=== PATIENT | male | born 1955 | race Caucasian/White ===

== ENCOUNTER 2021-12-06 14:24 | Outpatient (REF) | payer MEDICARE, SELFPAY ==
[2021-12-06 14:46] LABS: COVID-19 Test Negative (Negative); IDNOW Serial# 55D5AD1C
== END 2021-12-06 14:25 | disposition home or self-care (01) ==
LOC: HO.LNP 14:24
PROVIDERS: Visit Provider Internal Medicine
DX: Z20.822 Contact with and (suspected) exposure to COVID-19 (principal)
CPT/HCPCS: 87635

== ENCOUNTER 2023-06-11 10:09 | Outpatient (AMB) | payer MEDICARE, SELFPAY ==
[2023-06-11 10:19] VITALS: BP 171/84; PULSE 74; BMI 26.1
--- NOTE | 2023-06-11 10:19 | A.OFFVIS_ITS ---
Intake Vital Signs 06/11/23 10:19 Height 5 ft 11 in Weight 187 lb BMI 26.1 BP 171/84 H Blood Pressure Location Rt brachial Position Sitting Pulse 74 Intake Visit Reasons: RIH Intake Note: Patient referred for [facility]. Present for at least 2 yrs. C/o on and off pain. Train Attendant Required: No Accompanied by: Self / Same As Patient Allergies acetaminophen [Percocet] Allergy (Unknown, Verified 06/11/23 10:21) vomiting oxycodone [OXYCODONE] Adverse Reaction (Intermediate, Unverified 06/11/23 10:21) VOMITING NARCOTICS Allergy (Intermediate, Uncoded 06/11/23 10:21) VOMITING HPI HPI Comments History of Present Illness Details Patient presents with at least 3 year history of symptomatic enlarging right inguinal hernia as well as an incidental finding of an umbilical hernia. Patient has had a left inguinal hernia repair many years ago. This current right L hernia has increased in size to the point where he has to wear a truss. He has no other GI issues or complaints. He is tolerating a diet. He is occasionally constipated. Patient has had colonoscopy at least 3 times. On occasion, he has had to manually reduced the right inguinal hernia when has become symptomatic. 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 Left groin negative. Old well-healed left inguinal hernia scar. Genitalia within normal limits. Very large reducible right inguinal hernia. Abdomen soft. Approximately 2 cm reducible umbilical hernia. Assessment & Plan Assessment & Plan (1) Inguinal hernia: Code(s): K40.90 - Unilateral inguinal hernia, without obstruction or gangrene, not specified as recurrent (2) Umbilical hernia: Code(s): K42.9 - Umbilical hernia without obstruction or gangrene Plan I discussed surgical options with the patient which include open repair of both inguinal and umbilical hernia at the same setting. Risks, benefits, alternatives of the procedure were reviewed and included but not limited to bleeding, infection, recurrence, numbness, pain, scarring and the patient would like to proceed but is not sure of the date. All questions were answered. Arrangements will be made on a day which is convenient for him. The meantime, I discussed with him symptoms regarding incarceration/strangulation and should he develop any of these, he has been instructed the either call the office or go to the ER immediately. Coding Level of Care Code New Pt Level 5 (62712) Diagnoses Inguinal hernia K40.90 Umbilical hernia K42.9
== END 2023-06-11 11:31 | disposition home or self-care (01) ==
PROVIDERS: PCP Internal Medicine; Referring Provider Internal Medicine; Visit Provider Surgery
DX: K40.90 Unilateral inguinal hernia, without obstruction or gangrene, not specified as recurrent (principal); K42.9 Umbilical hernia without obstruction or gangrene
CPT/HCPCS: 99205

== ENCOUNTER → 2023-06-11 10:09 | Outpatient (BNVA) | payer MEDICARE, SELFPAY | PROVIDERS: PCP Internal Medicine; Referring Provider Internal Medicine; Visit Provider Surgery | DX: K40.90 Unilateral inguinal hernia, without obstruction or gangrene, not specified as recurrent (principal); K42.9 Umbilical hernia without obstruction or gangrene | CPT/HCPCS: 99202 ==

== ENCOUNTER 2023-07-11 08:25 | Day surgery (SDC) | payer MEDICARE, SELFPAY ==
[2023-07-08 16:50] VITALS: BMI 25.5
--- NOTE | 2023-07-10 09:31 | MHC.SHP ---
Pre-Procedural Eval Section A Date of Service: 07/10/23 The patient is an INPATIENT: No Changes since office visit: No Cold of Flu in the past 2 weeks, No New Medical Problems, No Changes in Medication and No Patient answered all questions The History & Physical has been completed within 30 days and I have reviewed it.: Yes Section B Chief Complaint: Unilateral inguinal hernia,Umbilical hernia withou Allergies: Allergies Allergy/AdvReac Type Severity Reaction Status Date / Time oxycodone [OXYCODONE] AdvReac Severe nausea, Verified 07/08/23 16:45 vomiting, diaphoresis NARCOTICS AdvReac Severe Nausea, Uncoded 07/08/23 16:45 vomiting, diaphoresis Plan I have reviewed the history and physical and performed a pertinent physical examination on my patient. No changes have occurred unless specified. Time Spent With Patient Time: Total time managing care of this patient today ____ minutes.
[2023-07-11] MEDS: Lactated Ringers 1,000 ML 100 ML IVCONT (08:47)
[2023-07-11 08:52] VITALS: BP 147/78; PULSE 59; RESP 18; TEMP 36.7; O2SAT 98
--- NOTE | 2023-07-11 09:30 | HO.ANESPROP2 ---
Documented by User: Tanesha Bob NP 07/10/23 08:57 HPI - Anesthesia Eval Consult details Narrative: 68yo M for Right OPEN Hernia Repair Inguinal with mesh, Hernia Repair Umbilical PMFSH Active Problems Active Problems: All Active Problems (Updated 07/08/23 @ 16:49 by Nany Bass, SHELDON) Inguinal hernia (Acute) Umbilical hernia (Acute) Past Medical History Medical History Contact dermatitis Full dentures Slow to wake up after anesthesia Surgical History Surgical History History of esophagogastroduodenoscopy (EGD) History of right hip replacement (~08/24/21) Hx of colonoscopy Hx of cystoscopy Hx of eye surgery Hx of left inguinal hernia repair Social History Social History Are you a primary child care director to a significant other at home: No Do you presently have visiting nurse or other home services: No Alcohol intake: never Patient Tobacco Use Status: Former Tobacco user Quit Date: quit years ago Tobacco use type: Cigarette Use of substances other than those prescribed or required for medical reasons: No Have you been hit, kicked, punched, or otherwise hurt by someone within the past year? If so, by whom?: No Are you DNR?: No Advance Directives: No Advance Directives Information Provided: Yes Advance Directives on File: No Recently lost weight without trying: No Nutrition Risks: No Nutritional Risk Meds Allergies Allergy/AdvReac Type Severity Reaction Status Date / Time oxycodone [OXYCODONE] AdvReac Severe nausea, Verified 07/11/23 08:53 vomiting, diaphoresis NARCOTICS AdvReac Severe Nausea, Uncoded 07/11/23 08:53 vomiting, diaphoresis Home Medications Medication Instructions Recorded Confirmed Last Taken Type betamethasone, augmented 0.05 % topical BID contact dermatitis 07/08/23 07/08/23 Unknown History topical ointment Exam Exam Date and Time: July 10, 2023 0857 Height,Weight and Vital Signs: Height 5 ft 11 in Weight 83.007 kg Assessment and Plan Assessment Anesthesia Assessment: Chart Reviewed Documented by User: Komal Castle DO 07/11/23 10:09 [facility] Past Medical History Medical History Contact dermatitis Full dentures Slow to wake up after anesthesia Family History Family history of problems with anesthesia: No Surgical History Surgical History History of esophagogastroduodenoscopy (EGD) History of right hip replacement (~08/24/21) Hx of colonoscopy Hx of cystoscopy Hx of eye surgery Hx of left inguinal hernia repair History of Problems with Anesthesia: Yes (slow to wake up) Social History Social History Are you a primary child care director to a significant other at home: No Do you presently have visiting nurse or other home services: No Alcohol intake: never Patient Tobacco Use Status: Former Tobacco user Quit Date: quit years ago Tobacco use type: Cigarette Use of substances other than those prescribed or required for medical reasons: No Have you been hit, kicked, punched, or otherwise hurt by someone within the past year? If so, by whom?: No Are you DNR?: No Advance Directives: No Advance Directives Information Provided: Yes Advance Directives on File: No Recently lost weight without trying: No Nutrition Risks: No Nutritional Risk Meds Allergies Allergy/AdvReac Type Severity Reaction Status Date / Time oxycodone [OXYCODONE] AdvReac Severe nausea, Verified 07/11/23 08:53 vomiting, diaphoresis NARCOTICS AdvReac Severe Nausea, Uncoded 07/11/23 08:53 vomiting, diaphoresis Home Medications Medication Instructions Recorded Confirmed Last Taken Type betamethasone, augmented 0.05 % topical BID contact dermatitis 07/08/23 07/08/23 Unknown History topical ointment Exam Exam Date and Time: July 11, 2023 0930 Height,Weight and Vital Signs: Vital Signs Temperature 98.0 F 07/11/23 08:52 Pulse Rate 59 07/11/23 08:52 Respiratory Rate 18 07/11/23 08:52 Blood Pressure 147/78 H 07/11/23 08:52 Pulse Oximetry 98 07/11/23 08:52 Oxygen Delivery Method Room Air 07/11/23 08:52 Temperature 98.0 F 07/11/23 08:52 Pulse Rate 59 07/11/23 08:52 Respiratory Rate 18 07/11/23 08:52 Blood Pressure 147/78 H 07/11/23 08:52 Pulse Oximetry 98 07/11/23 08:52 Oxygen Delivery Method Room Air 07/11/23 08:52 Height 5 ft 11 in Weight 83.007 kg Airway Mallampati Class: II TM Dist: >3cm Neck ROM: Full Denture: Upper and Lower Heart: S1S2 Lungs: CTAB Assessment and Plan Assessment Anesthesia Assessment: Anesthesia Plan Discussed and Chart Reviewed Final Anesthetic Review Family History of Problems with Anesthesia: No History of Problems with Anesthesia: Yes (slow to wake up) NPO: Yes ASA Class: I Final Preanesthetic Review: No Changes in Pt Med Stat, Meds/Allgs Chart Reviewed, Consent Obtained/Reviewed and Anes Risks/Benef Reviewed Patient Risk: Low Procedure Risk: Low Anesthetic Plan Anesthetic Plan: MAC: and Agree w/ Assess. and Plan Disposition: Standard PACU
[2023-07-11 10:48] VITALS: BP 113/57; PULSE 56; RESP 16; TEMP 36.3; O2SAT 97
[2023-07-11 10:53] VITALS: BP 97/57; PULSE 60; RESP 18; O2SAT 96
[2023-07-11 11:08] VITALS: BP 120/59; PULSE 55; RESP 16; O2SAT 95
--- NOTE | 2023-07-11 11:16 | W.PM.OPN ---
Operative Note Operative Note Date of Service: 07/11/23 Narrative: Preoperative diagnosis: [] 1. Right inguinal hernia 2. Incarcerated umbilical hernia Postop diagnosis: [] Same Procedure [] open repair right inguinal hernia with Bard mesh, repair of incarcerated umbilical hernia with Bard mesh Surgeon: [] [employer] Kil[employer] Furniture Saw Tender: [] SISSY Aguayo Type of Anesthesia: [] MAC Indication for surgery: [] Large indirect right inguinal hernia. No direct hernia demonstrated. Incarcerated umbilical hernia measuring approximately 3 cm with omental contents. Findings: [] Patient brought to the operating room, placed on operative table in the supine position, and after adequate level of MAC anesthesia was induced, the patient's abdomen and right groin were prepped and draped in usual sterile fashion. Commencing with the right inguinal hernia, a regional ilioinguinal block was initially undertaken using 1% lidocaine/0.5% Marcaine and a small right para- inguinal incision was made and carried down through skin, subcutaneous tissue, Maylin's fascia. External oblique fibers were opened in the direction with care to isolate and preserve the ilioinguinal nerve throughout the procedure. Exploration of the inguinal floor demonstrated no direct hernia. The spermatic cord was identified and retracted from the field. Exploration of the cord demonstrated A very large indirect hernia sac, which was from the cord. Sac was opened and contents were reduced. Sac had a suture ligature placed at its base of 2-0 silk and redundant sac amputated. Stump was infiltrated with 0.5% Marcaine/1% lidocaine and reduced. A Bard plug was placed in this indirect defect and sutured inferiorly to the inguinal ligament and superiorly to the transversalis fascia using interrupted 0 Ethibond suture. A completion the procedure, graft covered the entire inguinal floor. Internal ring admitted 1 finger tip. Wounds irrigated, and secured hemostasis. The wound Was closed in the following manner; external oblique fascia was closed using running 2-0 Vicryl suture. Maylin's fascia was reapproximated using interrupted 3-0 Vicryl sutures. Interrupted inverted deep dermal 3-0 Vicryl sutures followed by running subcuticular 4-0 Vicryl suture placed. Steri-Strips and sterile dressings were applied. Ipsilateral testicle was intrascrotal at completion of the procedure. Next umbilical hernia was approached and infiltrated with 1% lidocaine/0.5% Marcaine and using a small infraumbilical curvilinear incision and carried down through skin, subcutaneous tissue, were incarcerated hernia sac was identified and dissected from the posterior aspect of the umbilicus. Sac was opened were incarcerated omental contents were from the sac. Both were amputated using Bovie and specimen sent to pathology. Fascia was circumferentially cleared. A Bard mesh was placed in this defect and the superficial layer of the mesh was circumferentially sutured to the surrounding fascia using interrupted 0 Ethibond suture. A completion procedure, mesh was in good position with no tension and no gaps. Wounds irrigated, secured hemostasis, and Was closed in the following manner; posterior aspect of the umbilicus was tacked to the wound floor using up to 3-0 Vicryl sutures. Skin wound was closed using interrupted inverted dermal 3-0 Vicryl sutures followed by Steri-Strips and sterile dressings. Sponge, needle, and instrument counts were reported to be correct. Patient tolerated the procedure well and emerged anesthesia stable condition. EBL minimal
[2023-07-11 11:18] VITALS: BP 116/80; PULSE 54; RESP 14; O2SAT 96
[2023-07-11 11:33] VITALS: BP 125/69; PULSE 56; RESP 14; O2SAT 96
== END 2023-07-11 12:10 | disposition home or self-care (01) ==
PROVIDERS: PCP Internal Medicine; Visit Provider Surgery
PROC: (CPT 49505; principal; 2023-07-11 10:00)
PROC: (CPT 49505; 2023-07-11 10:00)
DX: K40.90 Unilateral inguinal hernia, without obstruction or gangrene, not specified as recurrent (principal); K42.0 Umbilical hernia with obstruction, without gangrene; Z88.5 Allergy status to narcotic agent; Z87.891 Personal history of nicotine dependence; Z98.890 Other specified postprocedural states
CPT/HCPCS: 49505; 49592; 88302; C1781; J0131; J0690; J1885; J2371; J2405; J3010

== ENCOUNTER → 2023-07-11 08:25 | Outpatient (BNV) | payer MEDICARE, SELFPAY | PROVIDERS: PCP Internal Medicine; Visit Provider Surgery | DX: K40.20 Bilateral inguinal hernia, without obstruction or gangrene, not specified as recurrent (principal); K42.0 Umbilical hernia with obstruction, without gangrene | CPT/HCPCS: 49505; 49594 ==

== ENCOUNTER 2023-07-21 09:13 | Outpatient (AMB) | payer MEDICARE, SELFPAY ==
--- NOTE | 2023-07-21 09:23 | MHC.OFFVIS ---
Intake Vital Signs 07/21/23 09:24 Weight 186 lb BP 140/72 H Blood Pressure Location Rt brachial Position Sitting Pulse 74 Intake Visit Reasons: S/P RIH & umbilical hernia repairs w/mesh Intake Note: Patient here s/p RIH and Umbilical hernia repairs. Reports incisions healing well. Denies pain or bleeding. Only too rx pain meds for a day. Shoe Worker Required: No Accompanied by: Self / Same As Patient Allergies oxycodone [OXYCODONE] Adverse Reaction (Severe, Verified 07/21/23 09:25) nausea, vomiting, diaphoresis NARCOTICS Adverse Reaction (Severe, Uncoded 07/21/23 09:25) Nausea, vomiting, diaphoresis HPI HPI Comments History of Present Illness Details Patient presents for follow-up status post umbilical and right inguinal hernia repair. He is doing well. He has tolerating his diet. Having normal bowel habits. He is slowly but steadily increasing his activity level. He has minimal incisional discomfort. [facility] Medical History Contact dermatitis Full dentures Slow to wake up after anesthesia Surgical History History of esophagogastroduodenoscopy (EGD) History of right hip replacement (~08/24/21) Hx of colonoscopy Hx of cystoscopy Hx of eye surgery Hx of left inguinal hernia repair Social History Are you a primary hearing care practitioner to a significant other at home: No Do you presently have visiting nurse or other home services: No Alcohol intake: never Patient Tobacco Use Status: Former Tobacco user Quit Date: quit years ago Tobacco use type: Cigarette Physical Exam Vital Signs: Last Vital Signs Pulse 74 07/21/23 09:24 BP 140/72 H 07/21/23 09:24 GI Other: Abdomen soft, benign. Both wounds clean dry and intact. Assessment & Plan Assessment & Plan (1) Inguinal hernia: Code(s): K40.90 - Unilateral inguinal hernia, without obstruction or gangrene, not specified as recurrent (2) Umbilical hernia: Code(s): K42.9 - Umbilical hernia without obstruction or gangrene Plan Patient has been given very specific local instructions as well as light duty when he returns to work. He does not need a note for work. All questions were answered. Patient will see me p.r.n.. Coding Level of Care Code Global (44969) Diagnoses Inguinal hernia K40.90 Umbilical hernia K42.9
[2023-07-21 09:24] VITALS: BP 140/72; PULSE 74
--- NOTE | 2023-07-21 09:39 | A.OFFVIS_ITS ---
Intake Vital Signs 07/21/23 09:24 Weight 186 lb BP 140/72 H Blood Pressure Location Rt brachial Position Sitting Pulse 74 Intake Visit Reasons: S/P RIH & umbilical hernia repairs w/mesh Allergies oxycodone [OXYCODONE] Adverse Reaction (Severe, Verified 07/21/23 09:25) nausea, vomiting, diaphoresis NARCOTICS Adverse Reaction (Severe, Uncoded 07/21/23 09:25) Nausea, vomiting, diaphoresis Medication List - Last Reconciled 07/21/23 by Michael Jaeger MD betamethasone, augmented 0.05 % topical BID PFSH Medical History Contact dermatitis Full dentures Slow to wake up after anesthesia Surgical History History of esophagogastroduodenoscopy (EGD) History of right hip replacement (~08/24/21) Hx of colonoscopy Hx of cystoscopy Hx of eye surgery Hx of left inguinal hernia repair Social History Are you a primary care management associate to a significant other at home: No Do you presently have visiting nurse or other home services: No Alcohol intake: never Patient Tobacco Use Status: Former Tobacco user Quit Date: quit years ago Tobacco use type: Cigarette Physical Exam Vital Signs: Last Vital Signs Pulse 74 07/21/23 09:24 BP 140/72 H 07/21/23 09:24 Assessment & Plan Assessment & Plan (1) Inguinal hernia: Code(s): K40.90 - Unilateral inguinal hernia, without obstruction or gangrene, not specified as recurrent (2) Umbilical hernia: Code(s): K42.9 - Umbilical hernia without obstruction or gangrene Coding Diagnoses Inguinal hernia K40.90 Umbilical hernia K42.9
== END 2023-07-21 09:34 | disposition home or self-care (01) ==
PROVIDERS: PCP Internal Medicine; Visit Provider Surgery
DX: K40.90 Unilateral inguinal hernia, without obstruction or gangrene, not specified as recurrent (principal); K42.9 Umbilical hernia without obstruction or gangrene
CPT/HCPCS: 99024

== ENCOUNTER → 2023-07-21 09:13 | Outpatient (BNVA) | payer MEDICARE, SELFPAY | PROVIDERS: PCP Internal Medicine; Visit Provider Surgery ==

== ENCOUNTER 2025-05-02 07:53 | Outpatient (AMB) | payer MEDICARE, SELFPAY ==
--- NOTE | 2025-05-02 08:00 | A.OFFPC_ITS ---
Vital Signs 05/02/25 08:04 Height 5 ft 11 in Weight 91.172 kg BMI 28.0 BP 138/82 Respiration 16 Pulse 84 Pulse Source Pulse Oximeter Temp 98.8 F Temp Source Temporal Artery Scan Pulse Oximetry (%) 95 Oxygen Delivery Method Room Air Intake Visit Reasons: Routine - see comments Audiovisual Production Specialist Required: No Accompanied by: Self / Same As Patient Allergies oxycodone [OXYCODONE] Adverse Reaction (Severe, Verified 05/02/25 08:00) nausea, vomiting, diaphoresis NARCOTICS Adverse Reaction (Severe, Uncoded 05/02/25 08:00) Nausea, vomiting, diaphoresis HPI HPI Comments History of Present Illness Details 69-year-old male with history of BPH, pe ptic ulcer disease, aortic stenosis, osteoarthritis, unspecified dermatitis, hernia repairs, vertigo presents to the office for management of chronic conditions and to establish care. Aortic aortic stenosis- no recent echo. No sob or lightheadedness Vertigo-episodic and well-controlled with meclizine Unspecified dermatitis of the hands-following with Dermatology. Has required steroid injections in the past but is now well-controlled and uses betamethasone as needed Concerns: None Health maintenance: Last colonoscopy-07/2014, overdue Due for PSA ROS: General: No fevers, malaise, unintentional weight loss HEENT: No blurred vision, diplopia. No sore throat, nasal congestion, rhinorrhea, sinus pain, ear pain Cardiovascular: No chest pain, palpitations, or leg edema Respiratory: No shortness of breath, wheezing, cough GI: No abdominal pain, nausea, vomiting, diarrhea, constipation, melena, hematochezia : No dysuria, hematuria, increased urinary frequency, decreased urinary output MSK: No myalgia, back pain Neuro: No headaches, weakness, paresthesias. see hpi Skin: No rashes or lesions EXAM: Constitutional - Awake and Alert, No apparent distress Eyes - PERRLA, EOMI Cardiovascular - S1S2, RRR, No edema. IV/ systolic murmur Respiratory - Normal lung expansion, Normal respiratory effort, No respiratory distress, CTA bilaterally Extremities - no calf tenderness bilaterally, no swelling Skin - Warm/Dry Neurological - Alert & oriented x3 Psychological - Appropriate affect [facility] Medical History (Updated 05/02/25 @ 08:18 by SISSY Meehan) Aortic stenosis Vertigo Slow to wake up after anesthesia Full dentures Contact dermatitis Surgical History (Updated 04/29/25 @ 15:35 by Usha Carvajal) Hx of eye surgery Hx of left inguinal hernia repair History of esophagogastroduodenoscopy (EGD) Hx of colonoscopy (~02/09/14) Hx of cystoscopy History of right hip replacement (~08/24/21) Social History Are you a primary healthcare account manager to a significant other at home: No Do you presently have visiting nurse or other home services: No Alcohol intake: never Patient Tobacco Use Status: Former Tobacco user Tobacco use type: Cigarette Questionnaire PHQ-9 Over the last 2 weeks, how often have you been bothered by any of the following problems? 1. Little interest or pleasure in doing things: not at all 2. Feeling down, depressed, or hopeless: not at all 3. Trouble falling or staying asleep, or sleeping too much: not at all 4. Feeling tired or having little energy: not at all 5. Poor appetite or overeating: not at all 6. Feeling bad about yourself - or that you are a failure or have let yourself or your family down: not at all 7. Trouble concentrating on things, such as reading the newspaper or watching television: not at all 8. Moving or speaking so slowly that other people could have noticed. Or the opposite - being so fidgety or restless that you have been moving around a lot more than usual: not at all 9. Thoughts that you would be better off or of hurting yourself in some way: not at all Total score: 0 Source: Developed by Drs. Quentin Fish, Lorri Peralta, Fantasma Avalos and colleagues, with an educational jameson from [employer]. Thrive Questionnaire Date Thrive assessed: 05/02/25 I am a: Patient What is your living situation today?: I have a steady place to live Within the past 12 months, did the food you bought not last and you didn't have the money to get more?: Never true Within the past 12 months, did you worry whether your food would run out before you got money to buy more?: Never true Do you have trouble paying for medicines?: No Do you have trouble getting transportation to medical appointments?: No Do you have trouble paying your heating and electricity bill?: No Do you have trouble taking care of your child, family member or friend?: No Do you have trouble with day-to-day activities such as bathing, preparing meals, shopping, managing finances, etc.?: No Are you currently unemployed and looking for a job?: No Are you interested in more education?: No Please select the resources that you would like help with: None THRIVE Score: 0 VARUN-7 AMB Questionnaire VARUN-7 Date VARUN - 7 assessed: 05/02/25 Feeling nervous, anxious, or on edge: 0 = Not at all Not being able to stop or control worryin = Not at all Worrying too much about different things: 0 = Not at all Trouble relaxin = Not at all Being so restless that it is hard to sit still: 0 = Not at all Becoming easily annoyed or irritable: 0 = Not at all Feeling afraid as if something awful might happen: 0 = Not at all Total VARUN-7 score (0-4 normal; 5-9 mild; 10-14 moderate; 15-21 severe): 0 Source: Developed by Drs. Quentin Fish, Lorri Peralta, Fantasma Avalos and colleagues, with an educational jameson from [employer]. Physical exam (Primary Care) Vital Signs: Last Vital Signs Temp 98.8 F 05/02/25 08:04 Pulse 84 05/02/25 08:04 Resp 16 05/02/25 08:04 BP 138/82 05/02/25 08:04 Pulse Ox 95 05/02/25 08:04 Oxygen Delivery Method Room Air 05/02/25 08:04 BMI result Body Mass Index 28.0 Tobacco/Smoking Status: Tobacco use Status Patient Tobacco Use Status Former Tobacco user 05/02/25 08:02 Tobacco use type Cigarette 05/02/25 08:02 Coding Level of Care Code New Pt Level 4 (60629) Complex EM visit Add On G2211 Diagnoses Aortic stenosis I35.0 Dermatitis, unspecified L30.9 Vertigo R42 Assessment & Plan Assessment & Plan (1) Aortic stenosis: Code(s): I35.0 - Nonrheumatic aortic (valve) stenosis Category: Medical Plan: Echo ordered. Asymptomatic (2) Dermatitis, unspecified: Code(s): L30.9 - Dermatitis, unspecified Category: Medical Plan: Continue following with derm. Steroid creams prn (3) Vertigo: Code(s): R42 - Dizziness and giddiness Category: Medical Plan: Stable. Meclizine prn. Given instructions on wilfrido maneuver Plan Follow up for annual exam. Referred for colonoscopy. Labs to be completed. Echo ordered Orders: Orders Complete Blood Count Auto Diff Today R42 - Dizziness and giddiness, Z12.5 - Encounter for screening for malignant neoplasm of prostate, Z13.220 - Encounter for screening for lipoid disorders Lipid Panel Today R42 - Dizziness and giddiness, Z12.5 - Encounter for screening for malignant neoplasm of prostate, Z13.220 - Encounter for screening for lipoid disorders Liver Panel Today R42 - Dizziness and giddiness, Z12.5 - Encounter for screening for malignant neoplasm of prostate, Z13.220 - Encounter for screening for lipoid disorders CA echo transthoracic complete Today I35.0 - Nonrheumatic aortic (valve) stenosis Basic Metabolic Panel Today R42 - Dizziness and giddiness, Z12.5 - Encounter for screening for malignant neoplasm of prostate, Z13.220 - Encounter for screening for lipoid disorders Hemoglobin A1c Today R42 - Dizziness and giddiness, Z12.5 - Encounter for screening for malignant neoplasm of prostate, Z13.220 - Encounter for screening for lipoid disorders Prostate Specific Antigen Today R42 - Dizziness and giddiness, Z12.5 - Encounter for screening for malignant neoplasm of prostate, Z13.220 - Encounter for screening for lipoid disorders Referrals Gastroenterology Referral L30.9 - Dermatitis, unspecified
[2025-05-02 08:04] VITALS: BP 138/82; PULSE 84; RESP 16; TEMP 37.1; O2SAT 95; BMI 28.0
== END 2025-05-02 08:26 | disposition home or self-care (01) ==
LOC: HO.HMCHD 07:53
PROVIDERS: PCP Internal Medicine; Visit Provider Physician Assistant
DX: I35.0 Nonrheumatic aortic (valve) stenosis (principal); L30.9 Dermatitis, unspecified; R42 Dizziness and giddiness

== ENCOUNTER 2025-05-02 08:32 | Outpatient (REF) | payer MEDICARE, SELFPAY ==
[2025-05-02 09:54] LABS: MANUAL DIFF FLAG NO
[2025-05-02 09:57] LABS: Basophils Absolute Auto 0.1 X10*3/uL (0.0-0.2); Basophils Percent Auto 0.9 % (0-2); Eosinophils Absolute Auto 0.2 X10*3/uL (0.0-0.4); Eosinophils Percent Auto 1.7 % (0-4); Hematocrit 48.9 % (42.0-52.0); Hemoglobin 16.5 g/dl (14.0-18.0); Imm Gran Abs Auto 0.03 X10*3/uL (0.00-0.03); Imm Gran Pct Auto 0.3 % (0.0-0.4); Lymphocytes Absolute Auto 1.6 X10*3/uL (1.2-4.9); Lymphocytes Percent Auto 14.5 % (20-40); Mean Corpuscular HGB Conc 33.7 g/dl (31.0-36.0); Mean Corpuscular Hemoglobin 29.8 pg (27.0-33.0); Mean Corpuscular Volume 88.3 fL (80.0-98.0); Mean Platelet Volume 10.1 fL (9.4-12.4); Monocytes Absolute Auto 0.7 X10*3/uL (0.1-1.2); Monocytes Percent Auto 6.4 % (2-11); Neutrophils Absolute Auto 8.2 x10*3/uL (2.0-8.3); Neutrophils Percent Auto 76.2 % (45-73); Platelet Count 249 X10*3/uL (160-400); Red Blood Count 5.54 X10*6/uL (4.60-5.80); Red Cell Distribution Width 13.2 % (11.0-16.0); White Blood Count 10.8 X10*3/uL (4.8-10.8)
[2025-05-02 10:11] LABS: Estimated Average Glucose 111 mg/dL; Hemoglobin A1c % 5.5 % (<6.0)
[2025-05-02 10:18] LABS: Alanine Aminotransferase 22 U/L (0-40); Albumin Level 4.6 g/dL (3.5-5.0); Alkaline Phosphatase 61 U/L (39-117); Anion Gap 9 (12-20); Aspartate Amino Transferase 22 U/L (5-37); Bilirubin Direct 0.2 mg/dL (0.0-0.5); Bilirubin Total 0.7 mg/dL (0.0-1.0); Blood Urea Nitrogen 19 mg/dL (9-16); Calcium 9.5 mg/dL (8.4-10.2); Carbon Dioxide 30 mmol/L (22-29); Chloride 106 mmol/L (96-108); Cholesterol 197 mg/dL (<200); Estimated Glomerular Filt Rate > 60; Glucose Random 105 mg/dL (60-115); HDL Cholesterol 37 mg/dL (>40); LDL Cholesterol Calculated 127 mg/dL (<100); Potassium 4.2 mmol/L (3.3-5.1); Sodium 141 mmol/L (135-145); Total Protein 7.4 g/dL (6.5-8.0); Triglycerides 166 mg/dL (<150)
[2025-05-02 10:31] LABS: Prostate Specific Antigen 3.82 ng/mL (<0.05-4.0)
== END 2025-05-02 08:33 | disposition home or self-care (01) ==
LOC: HO.10HDL 08:32
PROVIDERS: Visit Provider Physician Assistant
DX: I35.0 Nonrheumatic aortic (valve) stenosis (principal); L30.9 Dermatitis, unspecified; R42 Dizziness and giddiness; Z12.5 Encounter for screening for malignant neoplasm of prostate; Z13.220 Encounter for screening for lipoid disorders; Z13.1 Encounter for screening for diabetes mellitus
CPT/HCPCS: 36415; 80048; 80061; 80076; 83036; 84153; 85025; 96127; 99202

== ENCOUNTER → 2025-06-08 12:55 | Outpatient (REF) | payer MEDICARE, SELFPAY ==
--- NOTE | 2025-06-08 12:58 | CA_ITS ---
Transthoracic Echocardiogram Patient (Last, First, Middle): Gavin Ramirez F Gender: Male Date of : 1955 Age: 70 Procedure Date: 06/08/2025 Procedure Type: Transthoracic Echocardiogram Location: OP Height: 180.34 cm Weight: 87.54 kg BSA: 2.08 m2 Heart Rate: bpm BP: 140 / 88 mmHg Tower Helper: TO Referring MD: Ernestine SHEEHAN Symptoms: I35.0 - Nonrheumatic aortic (valve) stenosis Study Quality: Fair ECG Rhythm: Sinus Conclusions: - The left ventricular systolic function is low normal. The calculated ejection fraction is 54% by biplane method. - There is moderate aortic valve stenosis. Findings Left Ventricle Normal left ventricular cavity size. The left ventricular systolic function is low normal. The calculated ejection fraction is 54% by biplane method. There is no evidence of regional wall motion abnormalities. Diastolic function is normal for age. There is mild septal asymmetric hypertrophy. Stroke volume index 29 mL/m2. Right Ventricle Normal right ventricular cavity size and systolic function. Atria Both atria are normal in size. Aortic Valve There is moderate calcification of the aortic valve. There is moderate aortic valve stenosis. There is trace (trivial) aortic valve regurgitation. Dimensionless index 0.36. Stroke volume index 29 mL/m2. Mitral Valve There is mild mitral annular calcification. There is no mitral valve regurgitation. There is no mitral valve stenosis. Pulmonic Valve The pulmonic valve is likely normal. Tricuspid Valve There is mild tricuspid valve regurgitation. There is no evidence of pulmonary hypertension. Great Vessels The asc aorta is normal in size. Small plaque is seen in the sino tubular ridge. Venous The inferior vena cava is normal in size and collapses greater than 50% with inspiration. Pericardium/Pleural There is no evidence of pericardial effusion. Prior Study Comparison No prior study available for comparison. Measurements 2D Linear Measurements IVSd: 1.08 0.6-0.9/0.6-1.0 cm LVIDd: 4.29 3.9-5.3/4.2-5.9 cm LVIDd Index: 2.06 2.4-3.2/2.2-3.1 cm/m2 LVIDs: 2.84 2.0-3.6 cm LVPWd: 0.98 0.7-1.1 cm LA Diam: 3.30 2.7-3.8/3.0-4.0 cm LAIDs Index: 1.59 1.5-2.3 cm/m2 LV Mass: 183.55 67-162/88-224 g LV Mass Index: 88.24 43-95/49-115 g/m2 LVOT Diam: 2.10 3.0+(-)1.3 cm 2D Systolic Function EF 4C: 55.40 >55% EF 2C: 51.40 >55% EF BiP: 53.50 >55% Mitral Valve MV Pk E: 0.52 MV PK A: 0.91 MV Decel Time: 229.00 E/A: 0.60 E'Lateral: 8.38 E'Medial: 5.66 E/E' Med: 9.20 E/E' Lat: 6.20 PHT: 67.00 MVA PHT: 3.28 Decel [place]: 2.28 Aortic Valve AoV Pk Petar: 2.45 AoV Mn Petar: 1.82 AoV VTI: 0.50 AoV Pk Grad: 24.00 Aov Mn Grad: 15.00 JULIET Cont.VTI: 1.21 LVOT LVOT Pk Petar: 0.89 LVOT Mn Petar: 0.57 LVOT VTI: 0.18 LVOT Pk Grad: 3.00 LVOT Mn Grad: 1.00 LVOT Diam: 2.10 LVOT Area: 3.46 Diastolic Function MV Pk E: 0.52 MV Pk A: 0.91 E/A: 0.60 E'Medial: 5.66 E/E' Med: 9.20 E' Laterial: 8.38 E/E' Lat: 6.20 Right Ventricle TAPSE (mm): 23.50 TVS' Petar: 12.70 Tricuspid Valve TR Pk Petar: 2.14 TR Pk Grad: 18.00 RA Press: 3.00 RVSP: 21.00 Great Vessels Aorta Sinus of Valsalva: 3.58 2.0-3.5 cm Ao Asc: 3.70 2.1-3.4 cm Updated in Other Vendor System with Status of Final Doron Leal MD electronically signed on 06/09/2025 12:38:16 PM with status of Final
--- OUTSIDE RECORDS SUMMARY | 2025-06-08 13:49 | XMS_ITS | Patient Health Record ---
Author Organization [facility] Address [address] [place] [address] Care Team Providers Care Certified Fire Investigator Name Role Phone MCARTHUR, JUAN CARLOS Primary Care Provider Dandy White Jr Reason For Referral No Information Medications Medication SIG (Take, Route, Fr equency, Duration) Notes Start Date End Date Status Suprep Bowel Prep 1 as directed Orally 1 for 1 dose 01/26/2014 11/24/2024 Active Problems Problem Type SNOMED Code ICD Code Onset Dates Problem Status W/U Status Risk Notes Problem Colon cancer screening (V76.51) Active confirmed Plan Of Treatment Future Test Test Name Order Date COLONOSCOPY 01/26/2014 Next Appt Details Provider Name:Dandy gil Jr, 07/11/2025 09:00:00 AM, [address] [place] [address], [address], [place], [address], Insurance Providers Payer Name Payer Address Payer Phone Subscriber Number Group Number Insured Name Patient Relationship to Insured Coverage Start Date Coverage End Date [facility] [address] [place] [phone] [id number] STEPHANIE LOBATO Self - patient is the insured Medical (General) History Medical History History ICD Code egd with biopsy 02-08-2011 hemorrhoids palpitations Surgical History Surgery Date(Month/Year) right hip surgery following a fall cystoscopy for a kidney lesion
== END ==
LOC: HO.CARD 12:55
PROVIDERS: PCP Physician Assistant; Visit Provider Physician Assistant
DX: I35.0 Nonrheumatic aortic (valve) stenosis (principal)
CPT/HCPCS: 93306

== ENCOUNTER → 2025-06-08 12:58 | Outpatient (BNV) | payer MEDICARE, SELFPAY | PROVIDERS: PCP Physician Assistant; Visit Provider Internal Medicine | DX: I42.2 Other hypertrophic cardiomyopathy (principal); I35.2 Nonrheumatic aortic (valve) stenosis with insufficiency; I34.81 Nonrheumatic mitral (valve) annulus calcification; I36.1 Nonrheumatic tricuspid (valve) insufficiency | CPT/HCPCS: 93306 ==

== ENCOUNTER 2025-08-30 06:44 | Day surgery (SDC) | payer MEDICARE, SELFPAY ==
[2025-08-26 11:23] VITALS: BMI 28.3
--- NOTE | 2025-08-26 11:47 | HO.ANESPROP2 ---
Documented by User: Tanesha Bob NP 08/26/25 11:50 HPI - Anesthesia Eval Consult details Narrative: 70yo M for Colonoscopy PMFSH Active Problems Active Problems: All Active Problems Dermatitis, unspecified (Acute) Umbilical hernia (Acute) Inguinal hernia (Acute) Aortic stenosis (Acute) Contact dermatitis (Acute) Vertigo (Acute) Past Medical History Medical History (Updated 08/26/25 @ 11:25 by Nany Bass RN) Cardiac murmur GERD (gastroesophageal reflux disease) Aortic stenosis Vertigo Slow to wake up after anesthesia Full dentures Contact dermatitis Family History Family history of problems with anesthesia: No Surgical History Surgical History (Updated 08/26/25 @ 11:25 by Nany Bass RN) Hx of hernia repair Hx of eye surgery Hx of left inguinal hernia repair History of esophagogastroduodenoscopy (EGD) (2010) Hx of colonoscopy (~02/09/14) Hx of cystoscopy History of right hip replacement (~08/24/21) History of Problems with Anesthesia: Yes Social History Social History Are you a primary home care liaison to a significant other at home: No Do you presently have visiting nurse or other home services: No Alcohol intake: never Patient Tobacco Use Status: Former Tobacco user Tobacco use type: Cigarette Have you been hit, kicked, punched, or otherwise hurt by someone within the past year? If so, by whom?: No Are you DNR?: No Advance Directives: No Advance Directives Information Provided: Yes Meds Allergies Allergy/AdvReac Type Severity Reaction Status Date / Time oxycodone (OXYCODONE) AdvReac Severe nausea, Verified 05/02/25 08:00 vomiting, diaphoresis NARCOTICS AdvReac Severe Nausea, Uncoded 05/02/25 08:00 vomiting, diaphoresis Home Medications ?Medication ?Instructions ?Recorded ?Confirmed ?Last Taken ?Type No Known Home Meds 08/30/25 08/30/25 Unknown History Exam Height,Weight and Vital Signs: Height 5 ft 10 in Weight 89.358 kg Pertinent Lab Results Pertinent Lab Results: Laboratory Tests 05/02/25 08:35 WBC 10.8 Hgb 16.5 Hct 48.9 Plt Count 249 Sodium 141 Potassium 4.2 Chloride 106 Carbon Dioxide 30 H BUN 19 H Creatinine 1.19 Narrative Narrative: ECHO 05/2025 Conclusions: - The left ventricular systolic function is low normal. The calculated ejection fraction is 54% by biplane method. - There is moderate aortic valve stenosis. AoV Pk Grad: 24.00 Aov Mn Grad: 15.00 JULIET Cont.VTI: 1.21 Assessment and Plan Assessment Anesthesia Assessment: Chart Reviewed Final Anesthetic Review Family History of Problems with Anesthesia: No History of Problems with Anesthesia: Yes Documented by User: Taylor Méndez NP 08/26/25 13:17 HPI - Anesthesia Eval Consult details Narrative: 70yo M for Colonoscopy Mild aortic stenosis *see recent echo below PMFSH Past Medical History Medical History (Updated 08/26/25 @ 11:25 by Nany Bass RN) Cardiac murmur GERD (gastroesophageal reflux disease) Aortic stenosis Vertigo Slow to wake up after anesthesia Full dentures Contact dermatitis Surgical History Surgical History (Updated 08/26/25 @ 11:25 by Nany Bass RN) Hx of hernia repair Hx of eye surgery Hx of left inguinal hernia repair History of esophagogastroduodenoscopy (EGD) (2010) Hx of colonoscopy (~02/09/14) Hx of cystoscopy History of right hip replacement (~08/24/21) Social History Social History Are you a primary home care liaison to a significant other at home: No Do you presently have visiting nurse or other home services: No Alcohol intake: never Patient Tobacco Use Status: Former Tobacco user Tobacco use type: Cigarette Have you been hit, kicked, punched, or otherwise hurt by someone within the past year? If so, by whom?: No Are you DNR?: No Advance Directives: No Advance Directives Information Provided: Yes Meds Allergies Allergy/AdvReac Type Severity Reaction Status Date / Time oxycodone (OXYCODONE) AdvReac Severe nausea, Verified 05/02/25 08:00 vomiting, diaphoresis NARCOTICS AdvReac Severe Nausea, Uncoded 05/02/25 08:00 vomiting, diaphoresis Home Medications ?Medication ?Instructions ?Recorded ?Confirmed ?Last Taken ?Type No Known Home Meds 08/30/25 08/30/25 Unknown History Documented by User: Jeanne Bailey MD 08/30/25 08:13 [facility] Past Medical History Medical History (Updated 08/26/25 @ 11:25 by Nany Bass RN) Cardiac murmur GERD (gastroesophageal reflux disease) Aortic stenosis Vertigo Slow to wake up after anesthesia Full dentures Contact dermatitis Surgical History Surgical History (Updated 08/26/25 @ 11:25 by Nany Bass RN) Hx of hernia repair Hx of eye surgery Hx of left inguinal hernia repair History of esophagogastroduodenoscopy (EGD) (2010) Hx of colonoscopy (~02/09/14) Hx of cystoscopy History of right hip replacement (~08/24/21) Social History Social History Are you a primary home care liaison to a significant other at home: No Do you presently have visiting nurse or other home services: No Alcohol intake: never Patient Tobacco Use Status: Former Tobacco user Tobacco use type: Cigarette Have you been hit, kicked, punched, or otherwise hurt by someone within the past year? If so, by whom?: No Are you DNR?: No Advance Directives: No Advance Directives Information Provided: Yes Meds Allergies Allergy/AdvReac Type Severity Reaction Status Date / Time oxycodone (OXYCODONE) AdvReac Severe nausea, Verified 05/02/25 08:00 vomiting, diaphoresis NARCOTICS AdvReac Severe Nausea, Uncoded 05/02/25 08:00 vomiting, diaphoresis Home Medications ?Medication ?Instructions ?Recorded ?Confirmed ?Last Taken ?Type No Known Home Meds 08/30/25 08/30/25 Unknown History Exam Airway Mallampati Class: II TM Dist: >3cm Neck ROM: Full Heart: rrr Lungs: cta Assessment and Plan Assessment Anesthesia Assessment: Anesthesia Plan Discussed Final Anesthetic Review NPO: Yes ASA Class: II Final Preanesthetic Review: No Changes in Pt Med Stat, Meds/Allgs Chart Reviewed, Consent Obtained/Reviewed and Anes Risks/Benef Reviewed Patient Risk: Low Procedure Risk: Low Anesthetic Plan Anesthetic Plan: MAC: Disposition: Standard PACU
[2025-08-30 07:10] VITALS: BP 140/86; PULSE 76; RESP 16; TEMP 36.1; O2SAT 95; BMI 27.6
[2025-08-30] MEDS: Lactated Ringers 1,000 ML 100 ML IVCONT (07:22)
--- NOTE | 2025-08-30 08:19 | MHC.SHP ---
Pre-Procedural Eval Section A - 24 Hr Update-Section A only Date of Service: 08/30/25 Section B - Complete if H&P > 30 days Chief Complaint: screening Details of Present Illness: see h&p no changes Relevant Family History (Specify if Yes): No Relevant Social History: None Present Medications: see Short Stay Collaborative assessment Medical History: No relevant PMH History of Previous Operations: No relevant previous surgery Allergies: Allergies Allergy/AdvReac Type Severity Reaction Status Date / Time oxycodone (OXYCODONE) AdvReac Severe nausea, Verified 05/02/25 08:00 vomiting, diaphoresis NARCOTICS AdvReac Severe Nausea, Uncoded 05/02/25 08:00 vomiting, diaphoresis Review of Systems Sugical H&P ROS: Negative: Constitution, Cardiovascular, Respiratory, Neurological, Psychiatric, Hem-Onc, Allergic/Immunologic, Gastrointestinal, Genitourinary, Musculoskeletal, Integumentary, Endocrine and Eyes/Ears/Nose/Throat Exam Surgical H&P Exam: Normal: HEENT, Normal: Heart, Normal: Lungs, Normal: Extremities, Normal: Abdomen, Normal: Skin and Normal: Neurological Plan Diagnosis/Plan: Unchanged I have reviewed the history and physical and performed a pertinent physical examination on my patient. No changes have occurred unless specified. Time Spent With Patient Time: Total time managing care of this patient today ____ minutes.
[2025-08-30 08:57] VITALS: BP 105/53; PULSE 66; RESP 12; TEMP 36.7; O2SAT 98
[2025-08-30 09:12] VITALS: BP 137/85; PULSE 61; RESP 16; TEMP 36.6; O2SAT 96
--- NOTE | 2025-08-30 10:13 | OP_ITS ---
DATE OF SERVICE: 08/30/2025 SURGEON: Dandy Louise MD INDICATIONS: Colon cancer screening and prior history of adenomatous colon polyps. PREOPERATIVE DIAGNOSIS: POSTOPERATIVE DIAGNOSIS: PROCEDURE PERFORMED: Colonoscopy to the terminal ileum with snare polypectomy and biopsy. ESTIMATED BLOOD LOSS: COMPLICATIONS: ANESTHESIA: Monitored anesthesia care. ASSISTANTS: SPECIMENS: DESCRIPTION OF PROCEDURE: A history and physical performed. The risks and benefits of the procedure were explained to the patient. Informed consent was obtained. The patient was placed in the left lateral decubitus position. A digital rectal exam was performed and was found to be normal. The Olympus pediatric video colonoscope was introduced into the rectum and advanced to the cecum. The cecum was identified by transillumination, palpation, and identification of the ileocecal valve. Examination was performed. The scope was removed. He tolerated the procedure well and was returned to recovery in stable condition. FINDINGS: The terminal ileum was examined and appeared normal. The visualized colonic mucosa was within normal limits without evidence of masses or ulcers. Polyps were identified and removed with biopsy forceps and cold snare. These were located in the right colon, hepatic flexure and 30 cm. All were less than 10 mm. No evidence of malignancy was identified. There was mild sigmoid diverticulosis. The quality of the prep was good. Retroflexed examination showed some small internal hemorrhoids. IMPRESSION: Colon polyps. RECOMMENDATION: Follow up the biopsy results. MD MARINA Aquino/ENEIDA / [id number] MTDD
== END 2025-08-30 09:59 | disposition home or self-care (01) ==
PROVIDERS: PCP Physician Assistant; Visit Provider Internal Medicine Gastroenterology
PROC: 0DJD8ZZ Inspection of Lower Intestinal Tract, Via Natural or Artificial Opening Endoscopic (ICD-10-PCS; CPT 45378; principal; 2025-08-30 08:20)
DX: Z12.11 Encounter for screening for malignant neoplasm of colon (principal); Z86.018 Personal history of other benign neoplasm; Z83.719 Family history of colon polyps, unspecified; D12.2 Benign neoplasm of ascending colon; D12.4 Benign neoplasm of descending colon; D12.3 Benign neoplasm of transverse colon; K57.30 Diverticulosis of large intestine without perforation or abscess without bleeding; K64.8 Other hemorrhoids
CPT/HCPCS: 45380; 45385; 88305; J2003; J2704

== ENCOUNTER 2025-10-06 08:17 | Outpatient (AMB) | payer MEDICARE, SELFPAY ==
--- OUTSIDE RECORDS SUMMARY | 2025-08-10 06:20 | XMS_ITS ---
Author Organization [facility] Address [address] [place] [phone] Care Team Providers Care Story Teller Name Role Phone JUAN CARLOS MCARTHUR Primary Care Provider Dandy White Jr [phone] REASON FOR VISIT COLON SCREENING Encounters Encounter Location Date Provider Diagnosis [facility] [address] [place] [phone] 08/10/2025 Dandy Louise Jr Plan Of Treatment No Information Progress Notes * STEPHANIE LOBATO:1954 (70 yo M)Acc No.[id number]:08/10/2025 Progress Notes Patient: STEPHANIE FANG Provider: Anisa Louise MD :1955 A ge:70 Y S ex:Male Date:08/10/2025 Address:[address] [place], [place] [phone] Pcp:JUAN CARLOS MCARTHUR Subjective: * Chief Complaints: * 1 . COLON SCREENING. * Medical History: Objective: * Vitals: Assessment: Plan: * Treatment: * * The named appointment provid er may or may not be the originator of this progress note, and it is not deemed complete until electronically signed by the appointment provider. Sign off status: Pending * Provider: Anisa Louise MD Date: 0 08/10/2025 Generated for Printi ng/Farobg/eTransmitting on: 12/06/2024 08:35 AM EST
--- OUTSIDE RECORDS SUMMARY | 2025-08-30 03:20 | XMS_ITS ---
Author Organization [facility] Address [address] [place] [address] Care Team Providers Care Dental Receptionist Name Role Phone JUAN CARLOS MCARTHUR Primary Care Provider Dandy White Jr [phone] REASON FOR VISIT screening Encounters Encounter Location Date Provider Diagnosis [facility] [address] [place] [phone] 08/30/2025 Dandy Louise Jr Plan Of Treatment No Information Progress Notes * STEPHANIE LOBATO:1954 (70 yo M)Acc No.[id number]:08/30/2025 COLON WITH MAC Patient: STEPHANIE FANG Provider: Anisa Louise MD :1955 A ge:70 Y S ex:Male Date:08/30/2025 Address:[address] [place], [place] [phone] Pcp:JUAN CARLOS MCARTHUR Subjective: * Chief Complaints: * 1 . Screening. * Medical History: Objective: * Vitals: Assessment: Plan: * Treatment: * * The named appointment provid er may or may not be the originator of this progress note, and it is not deemed complete until electronically signed by the appointment provider. Sign off status: Pending * Provider: Anisa Louise MD Date: Generated for Ingei ng/Farobg/eTransmitting on: 12/06/2024 08:35 AM EST
--- NOTE | 2025-10-06 08:22 | A.OFFVIS_ITS ---
Vital Signs 10/06/25 08:23 Height 5 ft 10 in Weight 196 lb 3.382 oz BMI 28.2 BP 138/80 Blood Pressure Location Lt brachial Position Sitting Pulse 79 Pulse Source Monitor Intake Visit Reasons: [employer]/[place]ard/Nonrheumatic aortic (valve) stenosis Allergies oxycodone (OXYCODONE) Adverse Reaction (Severe, Verified 05/02/25 08:00) nausea, vomiting, diaphoresis NARCOTICS Adverse Reaction (Severe, Uncoded 05/02/25 08:00) Nausea, vomiting, diaphoresis Medication List - Last Reconciled 10/06/25 by Doron Leal MD No Known Home Meds HPI Comments Details: Gavin is here for evaluation regarding aortic stenosis. An echocardiogram recently had shown moderate aortic stenosis and hence he is referred. Per hay salguero, his prior PCP had monitored and cardiac murmur over years and thought to be unchanged but when he has switched PCP they ordered an echocardiogram which was abnormal and hence he is referred. 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 Otherwise, no prior cardiac history. [facility] Medical History (Updated 08/31/25 @ 17:04 by SISSY Meehan) Tubular adenoma Cardiac murmur GERD (gastroesophageal reflux disease) Aortic stenosis Vertigo Slow to wake up after anesthesia Full dentures Contact dermatitis Surgical History (Updated 08/26/25 @ 11:25 by Nany Bass RN) Hx of hernia repair Hx of eye surgery Hx of left inguinal hernia repair History of esophagogastroduodenoscopy (EGD) (2010) Hx of colonoscopy (~02/09/14) Hx of cystoscopy History of right hip replacement (~08/24/21) Family History (Updated 10/06/25 @ 08:33 by Fany Carmichael) Father Cancer Mother Dementia Social History Are you a primary student career development specialist to a significant other at home: No Do you presently have visiting nurse or other home services: No Alcohol intake: never Patient Tobacco Use Status: Former Tobacco user Tobacco use type: Cigarette Review of Systems Const Denies weakness Eyes Reports blurry vision ENT Reports vertigo and Denies dizziness Card Denies chest pain, Denies chest pain with activity, Denies syncope, Denies rapid heart rate, Denies pedal edema, Denies edema, Denies leg edema, Denies lightheadedness, Denies palpitations, Denies dyspnea, Denies dyspnea on exertion and Denies orthopnea Resp Denies cough, Denies dyspnea and Denies dyspnea on exertion GI Denies hematochezia and Denies change in stool character Musc Denies abnormal gait, Reports myalgias, Denies muscle cramps, Denies muscle weakness, Denies numbness, Denies radiating pain into limb and Denies tingling Neuro Denies abnormal gait, Reports vertigo, Denies dizziness, Denies syncope, Denies numbness, Denies tingling and Denies weakness Endo Denies palpitations Physical Exam Vital Signs: Last Vital Signs Pulse 79 10/06/25 08:23 BP 138/80 10/06/25 08:23 BMI result Body Mass Index 28.2 Const General: comfortable and no acute distress Orientation/consciousness: patient oriented x3 HEENT Other: Unremarkable Head: Yes normal to inspection Neck Neck: Yes normal visual inspection Chest Chest palpation & inspection: normal inspection of the chest Resp Auscultation: clear to auscultation bilaterally Cardio Palpation: normal PMI Heart sounds: S1 normal heart sound present, S2 normal heart sound present, no gallops, Murmur heart sound present systolic III/ and no rubs GI Palpation (GI): Soft to palpation Back/Spine/Pelvis Other: unremarkable Skin General skin exam: no rashes or lesions noted Neuro General: patient oriented x3 Extrem General: Yes normal to inspection Psych Mental Status: mental status grossly normal Office Procedures EKG Details: EKG with underlying sinus with 79/Min; no ischemic changes; [place] [address]-[id number], Complete Assessment & Plan Assessment & Plan (1) Aortic stenosis: Code(s): I35.0 - Nonrheumatic aortic (valve) stenosis Category: Medical Plan In the echocardiogram, aortic valve moderately calcified. Mean gradient across aortic valve 15 mm Hg with a calculated valve area of 1.2 cm2. Dimensionless index 0.36. Overall, moderate aortic stenosis. LVEF 54%. Findings discussed with patient. At the current time, he has got absolutely no symptoms and the aortic stenosis is also not hemodynamically significant. We discussed about the symptoms, natural course, treatment options among others. At the current time, plan is to just monitor. We will repeat an echocardiogram in few months' time. In the interim, he will contact us with any concerns like chest pains or shortness of breath or dizziness. Follow up with repeat echocardiogram. Otherwise, blood pressure is borderline and that needs monitoring. We discussed about that as well. Discussion Notes I explained to the patient that the aortic valve stenosis is currently asymptomatic and does not require immediate intervention. We discussed the importance of monitoring for symptoms such as shortness of breath or chest pain and the plan to perform a follow-up echocardiogram next year. I advised the patient to maintain his current lifestyle and to report any new symptoms pro mptly. Patient was informed and verbally consented to the use of an ambient scribe for clinic note documentation during this visit. Orders: Orders CA echo transthoracic complete 05/24/26 I35.0 - Nonrheumatic aortic (valve) stenosis Patient Instructions: - Monitor for symptoms like shortness of breath or chest pain. - Schedule a follow-up echocardiogram. - Maintain current lifestyle and report any new symptoms. Coding Level of Care Code New Pt Level 4 (27404) Complex EM visit Add On G2211 Diagnoses Aortic stenosis I35.0 CPT Codes EKG - CPT: 58309-Xkdbnyijsvkdeinrm, Complete ([id number])
[2025-10-06 08:23] VITALS: BP 138/80; PULSE 79; BMI 28.2
--- OUTSIDE RECORDS SUMMARY | 2025-10-06 08:35 | XMS_ITS | Patient Health Record ---
Author Organization [facility] Address [address] [place] [address] Care Team Providers Care Certified Professional Controller Name Role Phone JUAN CARLOS MCARTHUR Primary Care Provider Dandy White Jr Unavailable [phone] Allergies Allergen (clinical drug ingredient) Drug/Non Drug Allergy documented on EMR Reaction Allergy Type Onset Date Status meperidine Demerol nausea and vomiting Drug Allergy Active Results Component Value Reference Range Notes Pathology Reviewed date:09/01/2025 08:35:10 AM Interpretation: Performing Lab:[facility], [address] [place] [id number] Notes/Report: Reason For Referral No Information Medications Medication SIG (Take, Route, Fr equency, Duration) Notes Start Date End Date Status Suprep Bowel Prep 1 as directed Orally 1 ; Duration: 1 dose 01/26/2014 Not-Taking Problems Problem Type SNOMED Code ICD Code Onset Dates Problem Status W/U Status Risk Notes Problem Colon cancer screening (301293856) Colon cancer screening (V76.51) Active confirmed Problem Screening for malignant neoplasm of colon (728337992) Encounter for screening for malignant neoplasm of colon (Z12.11) Active confirmed Problem Pre-procedure evaluation check (458711859) Encounter for other preprocedural examination (Z01.818) Active confirmed Vital Signs Heart Rate 80 /min 07/11/2025 Temperature 98.0 degrees Fahrenheit 07/11/2025 Blood pressure diastolic 01 mm Hg 07/11/2025 Height 70 in 07/11/2025 Blood pressure systolic 001 mm Hg 07/11/2025 Weight 197.0 lbs 07/11/2025 BMI 28.26 kg/m2 07/11/2025 Encounters Encounter Location Date Provider Diagnosis [facility] [address], [place] [phone] 08/30/[address] [facility] [address] [place] [phone] 07/11/2025 Dandy Louise Jr Encounter for screening for malignant neoplasm of colon Z12.11 and Encounter for other preprocedural examination Z01.818 [facility] [address] [place] [phone] 08/26/[address] [facility] [address] [place] [phone] 09/01/2025 Dandy Louise Jr Assessments Encounter Date Diagnosis (ICD Code) Assessment Notes Treatment Notes Treatment Clinical Notes Section Notes 07/11/2025 Encounter for screening for malignant neoplasm of colon (ICD-10 - Z12.11) 07/11/2025 Encounter for other preprocedural examination (ICD-10 - Z01.818) Plan Of Treatment Future Test Test Name Order Date COLONOSCOPY 01/26/2014 COLONOSCOPY 07/11/2025 Insurance Providers Payer Name Payer Address Payer Phone Subscriber Number Group Number Insured Name Patient Relationship to Insured Coverage Start Date Coverage End Date [facility] [address] [place] [phone] [id number] STEPHANIE LOBATO Self - patient is the insured 4 Medical (General) History Medical History History ICD Code Gastroesophageal reflux disease,egd with biopsy 02-08-2011 Heart murmur, scheduled for echocardiogr am and cardiology evaluation. Colonoscopy 2013, lymphoid polyp, 5-year follow-up Surgical History Surgery Date(Month/Year) 3 hernia repairs hip replacement in 2020 cystoscopy for a kidney lesion right hip surgery following a fall
== END 2025-10-06 08:47 | disposition home or self-care (01) ==
LOC: HO.HCS 08:18
PROVIDERS: PCP Physician Assistant; Visit Provider Internal Medicine
DX: I35.0 Nonrheumatic aortic (valve) stenosis (principal)
CPT/HCPCS: 93010; 99214; G2211

== ENCOUNTER → 2025-10-06 08:17 | Outpatient (BNVA) | payer MEDICARE, SELFPAY | PROVIDERS: PCP Physician Assistant; Visit Provider Internal Medicine | DX: I35.0 Nonrheumatic aortic (valve) stenosis (principal) | CPT/HCPCS: 93005; 99212 ==